=== PATIENT | female | born 1990 | race Caucasian/White ===

== ENCOUNTER 2020-02-16 19:16 | Inpatient (IN) ==
[2020-02-16] MEDS ORDERED: Naloxone 0.4 MG/ML INJ IVP ONE (19:24)
[2020-02-16] MEDS ORDERED: 0.9 % Sodium Chloride 1,000 ML ONE (19:31)
[2020-02-16] MEDS: 0.9 % Sodium Chloride 1,000 ML IVC SCH ×2 (19:42→22:10)
[2020-02-16 20:01] LABS: Basophils # 0.1 K/mcL (0.0-0.2); Basophils % 0.4 %; Eosinophils % 0.1 %; Hematocrit 43.4 % (35.3-44.9); Hemoglobin 12.6 g/dL (11.5-15.4); Immature Granulocytes % 2.4 % (0-4); Mean Platelet Volume 10.5 fL (9.4-12.4); Monocytes # 1.4 K/mcL (0.0-1.3); Monocytes % 7.2 %; Neutrophils # 11.4 K/mcL (1.6-8.9); Platelet Count 432 K/mcL (140-400); Red Blood Count 4.34 M/mcL (3.82-4.97); Red Cell Distribution Width 12.8 % (11.5-14.5); Segmented Neutrophils % 58.9 %; White Blood Count 19.3 K/mcL (4.3-11.1)
[2020-02-16 20:06] LABS: Bacteria,Urine Few per hpf (None-Few); Bilirubin,Urine Negative (Negative); Blood,Urine Small (Negative); Clarity,Urine Turbid (Clear); Color,Urine Light-Yellow (Yellow); Glucose,Urine (UA) >=1000 mg/dL (Normal); Hyaline Casts,Urine Few per lpf (None Seen); Ketones,Urine 60 mg/dL (Negative); Leukocyte Esterase,Urine Negative (Negative); Mucus,Urine Few per lpf (None-Few); Nitrite,Urine Negative (Negative); PH,Urine 5.5 pH Units (5.0-8.0); Protein,Urine 70 mg/dL (Neg-Trace); RBC,Urine 0-3 per hpf (0-3); Specific Gravity,Urine 1.018 (1.010-1.025); Squamous Epithelial Cell,Urine Few per hpf (None-Few); Urobilinogen,Urine Normal (Normal)
[2020-02-16 20:13] LABS: VBG HCO3 4 mEq/L (21-27); VBG PCO2 33 mmHg (41-51); VBG PO2 49 mmHg (25-50)
[2020-02-16 20:14] LABS: Amphetamine Screen,Urine Positive ng/mL (Cutoff=1000); Barbiturate Screen,Urine Negative ng/mL (Cutoff=200); Benzodiazepines Screen,Urine Negative ng/mL (Cutoff=200); Cannabinoid Screen,Urine Negative ng/mL (Cutoff = 50); Cocaine Screen,Urine Negative ng/mL (Cutoff= 300); Opiate Screen,Urine Negative ng/mL (Cutoff=300); Phencyclidine Screen,Urine Negative ng/mL (Cutoff=25)
[2020-02-16 20:35] LABS: Platelet Estimate Normal (Normal); Reactive Lymphocytes Present (Not Present)
[2020-02-16] MEDS ORDERED: Insulin Regular, Human 100 UNIT/ML IV ONE (20:37)
[2020-02-16 20:39] LABS: Acetaminophen < 10 mcg/mL (10-20); Alanine Aminotransferase 111 Units/L (7-52); Albumin 3.8 g/dL (3.5-5.7); Albumin/Globulin Ratio 1.1 (1.1-2.2); Alkaline Phosphatase 266 Units/L (34-104); Aspartate Amino Transferase 46 Units/L (13-39); BUN/Creatinine Ratio 25 (6-26); Bilirubin,Direct 0.1 mg/dL (0.0-0.2); Bilirubin,Indirect 0.2 mg/dL (0.0-1.0); Bilirubin,Total 0.3 mg/dL (0.3-1.0); Blood Urea Nitrogen 47 mg/dL (6-20); Carbon Dioxide < 4 mEq/L (23-29); Chloride 69 mEq/L (98-107); Estimated Average Glucose 401 mg/dl; Ethanol < 10 mg/dL (Less than 10); Globulin 3.4 g/dL (2.4-3.5); Osmolality,Calculated 306 (280-300); Potassium 7.3 mEq/L (3.5-5.1); Salicylate < 2.5 mg/dL (15.0-30.0); Sodium 109 mEq/L (136-145); Total Protein 7.2 g/dL (6.4-8.9); Troponin I 0.03 ng/mL (< 0.04); eGFR For African Americans 38 (> 60); eGFR For Non-African Americans 32 (> 60)
[2020-02-16] MEDS ORDERED: 0.9 % Sodium Chloride 1,000 ML IVC ONE (21:01)
[2020-02-16] MEDS ORDERED: Calcium Gluconate 1gm/50mL 1 GM/50 ML BAG IVPB ONE (21:08)
[2020-02-16] MEDS ORDERED: Sodium Bicarbonate 50 MEQ/50 ML VIAL IVP ONE (21:09)
[2020-02-16] MEDS ORDERED: 0.9 % Sodium Chloride 500 ML IVC ONE (21:16)
[2020-02-16 21:26] LABS: Adenovirus Not Detected (Not Detect); Coronavirus 229E Not Detected (Not Detect); Coronavirus HKU1 Not Detected (Not Detect); Coronavirus NL63 Not Detected (Not Detect); Coronavirus OC43 Not Detected (Not Detect)
[2020-02-16 21:27] LABS: Bordetella Pertussis Not Detected (Not Detect); Chlamydophila pneumoniae Not Detected (Not Detect); Human Metapneumovirus Not Detected (Not Detect); Human Rhinovirus/Enterovirus Not Detected (Not Detect); Influenza A Subtype 2009 H1 Not Detected (Not Detect); Influenza B Not Detected (Not Detect); Mycoplasma pneumoniae Not Detected (Not Detect); Parainfluenza Virus 1 Not Detected (Not Detect); Parainfluenza Virus 2 Not Detected (Not Detect); Parainfluenza Virus 3 Not Detected (Not Detect); Parainfluenza Virus 4 Not Detected (Not Detect); Respiratory Syncytial Virus Not Detected (Not Detect); SARS-CoV-2 Not Detected (Not Detect)
[2020-02-16] MEDS ORDERED: *HR* Adenosine 6 MG/2 ML VIAL IVP ONE ×2 (21:34→22:04)
[2020-02-16] MEDS: Insulin Human Regular 100 UNIT in 0.9 % Sodium Chloride 100 ML IVC SCH (21:41)
[2020-02-16] MEDS ORDERED: Insulin Regular, Human 100 UNIT/ML IV PRN (21:53)
[2020-02-16] MEDS ORDERED: D5% in 0.45% NACL w KCl 20 MEQ/1,000 ML MLS IVC PRN (21:53)
[2020-02-16] MEDS ORDERED: *HR* Dextrose 50 % in Water (Vial) 50 ML VIAL IVP PRN ×2 (21:53→22:56)
[2020-02-16] MEDS ORDERED: *HR* Adenosine 6 MG/2 ML SYRINGE IVP ONE (22:04)
[2020-02-16 22:31] LABS: ABG Base Excess -20 mEq/L (-2 to 3); ABG HCO3 6 mEq/L (21-27); ABG Oxygen Saturation 99 % (95-98); ABG PCO2 16 mmHg (35-45); ABG PH 7.18 pH Units (7.32-7.45); ABG PO2 175 mmHg (85-104); ABG TCO2 7 mEq/L (20-26)
[2020-02-16] MEDS ORDERED: Naloxone 0.4 MG/ML INJ IVP PRN (22:46)
[2020-02-16] MEDS: Sodium Bicarbonate 50 MEQ in 0.45 % Sodium Chloride 1,000 ML IVC SCH (22:50)
[2020-02-16 23:06] LABS: Glucose 1284 mg/dL (70-105)
[2020-02-17 00:21] LABS: BUN/Creatinine Ratio 29 (6-26); Blood Urea Nitrogen 37 mg/dL (6-20); Calcium 9.1 mg/dL (8.6-10.3); Carbon Dioxide 8 mEq/L (23-29); Chloride 93 mEq/L (98-107); Glucose 636 mg/dL (70-105); Osmolality,Calculated 307 (280-300); Potassium 5.2 mEq/L (3.5-5.1); Sodium 129 mEq/L (136-145); eGFR For African Americans > 60 (> 60); eGFR For Non-African Americans 50 (> 60)
[2020-02-17] MEDS: 0.45 % Sodium Chloride w/KCl 20 MEQ/1,000 ML MLS IVC SCH ×5 (00:47→20:37)
[2020-02-17] MEDS ORDERED: Ondansetron 4 MG/2 ML VIAL ONE (00:50)
[2020-02-17] MEDS: Ondansetron 4 MG/2 ML VIAL IVP PRN ×3 (00:54→16:06)
[2020-02-17 01:11] LABS: Creatinine,Urine 16 mg/dL
[2020-02-17 03:09] LABS: Hepatitis B Surface Antigen Nonreactive (Nonreactive)
[2020-02-17 03:37] LABS: Hepatitis B Core IgM Nonreactive (Nonreactive)
[2020-02-17 03:38] LABS: Hepatitis A Antibody IgM Nonreactive (Nonreactive)
[2020-02-17 04:34] LABS: VBG HCO3 17 mEq/L (21-27); VBG PCO2 33 mmHg (41-51); VBG PH 7.32 pH Units (7.32-7.42); VBG PO2 140 mmHg (25-50)
[2020-02-17 04:50] LABS: Alanine Aminotransferase 97 Units/L (7-52); Albumin 3.8 g/dL (3.5-5.7); Albumin/Globulin Ratio 1.2 (1.1-2.2); Alkaline Phosphatase 233 Units/L (34-104); Aspartate Amino Transferase 40 Units/L (13-39); BUN/Creatinine Ratio 25 (6-26); Bilirubin,Total 0.4 mg/dL (0.3-1.0); Blood Urea Nitrogen 28 mg/dL (6-20); Calcium 9.1 mg/dL (8.6-10.3); Carbon Dioxide 15 mEq/L (23-29); Chloride 97 mEq/L (98-107); Globulin 3.1 g/dL (2.4-3.5); Glucose 376 mg/dL (70-105); Magnesium 1.7 mg/dL (1.6-2.6); Osmolality,Calculated 293 (280-300); Phosphorous 1.5 mg/dL (2.7-4.5); Potassium 5.5 mEq/L (3.5-5.1); Sodium 131 mEq/L (136-145); Total Protein 6.9 g/dL (6.4-8.9); eGFR For African Americans > 60 (> 60); eGFR For Non-African Americans 60 (> 60)
[2020-02-17 05:49] LABS: Hepatitis C Virus Antibody Reactive (Nonreactive)
[2020-02-17] MEDS: *HR* Heparin 5,000 UNIT/ML VIAL SQ SCH ×3 (06:11→21:23)
[2020-02-17] MEDS: Sodium Bicarbonate 50 MEQ in 0.45 % Sodium Chloride 1,000 ML IVC SCH (08:51)
[2020-02-17 09:18] LABS: Hematocrit 33.7 % (35.3-44.9); Hemoglobin 11.7 g/dL (11.5-15.4); Mean Corpuscular HGB Conc 34.7 g/dL (31.6-35.5); Mean Corpuscular Hemoglobin 28.9 pg (28.0-33.3); Mean Corpuscular Volume 83.2 fL (83.0-100.0); Mean Platelet Volume 9.2 fL (9.4-12.4); Platelet Count 280 K/mcL (140-400); Red Blood Count 4.05 M/mcL (3.82-4.97); Red Cell Distribution Width 12.7 % (11.5-14.5); White Blood Count 11.2 K/mcL (4.3-11.1)
[2020-02-17 09:19] LABS: VBG Ionized Calcium 1.09 mmol/L (1.15-1.35)
[2020-02-17 09:46] LABS: Alanine Aminotransferase 84 Units/L (7-52); Albumin 3.5 g/dL (3.5-5.7); Albumin/Globulin Ratio 1.3 (1.1-2.2); Alkaline Phosphatase 204 Units/L (34-104); Aspartate Amino Transferase 37 Units/L (13-39); BUN/Creatinine Ratio 24 (6-26); Bilirubin,Total 0.4 mg/dL (0.3-1.0); Blood Urea Nitrogen 20 mg/dL (6-20); Calcium 8.4 mg/dL (8.6-10.3); Carbon Dioxide 19 mEq/L (23-29); Chloride 97 mEq/L (98-107); Globulin 2.8 g/dL (2.4-3.5); Glucose 313 mg/dL (70-105); Magnesium 2.2 mg/dL (1.6-2.6); Osmolality,Calculated 285 (280-300); Phosphorous 1.8 mg/dL (2.7-4.5); Potassium 5.3 mEq/L (3.5-5.1); Sodium 130 mEq/L (136-145); Total Protein 6.3 g/dL (6.4-8.9); eGFR For African Americans > 60 (> 60); eGFR For Non-African Americans > 60 (> 60)
[2020-02-17] MEDS: D5% in 0.45% NACL 1,000 ML IVC PRN ×2 (11:15→15:18)
[2020-02-17] MEDS ORDERED: Perflutren Lipid Microsphere 1.3 ML in 0.9 % Sodium Chloride 8.7 ML IVP PRN (11:46)
[2020-02-17] MEDS ORDERED: cefTRIAXone 2,000 MG in Water for inj. (sterile) 20 ML IVP SCH (12:00)
[2020-02-17] MEDS: Insulin Human Regular 100 UNIT in 0.9 % Sodium Chloride 100 ML IVC SCH (15:00)
[2020-02-17 17:20] LABS: BUN/Creatinine Ratio 19 (6-26); Blood Urea Nitrogen 12 mg/dL (6-20); Calcium 8.5 mg/dL (8.6-10.3); Carbon Dioxide 29 mEq/L (23-29); Chloride 101 mEq/L (98-107); Glucose 94 mg/dL (70-105); Magnesium 1.7 mg/dL (1.6-2.6); Osmolality,Calculated 278 (280-300); Phosphorous 2.2 mg/dL (2.7-4.5); Potassium 3.7 mEq/L (3.5-5.1); Sodium 134 mEq/L (136-145); eGFR For African Americans > 60 (> 60); eGFR For Non-African Americans > 60 (> 60)
[2020-02-17] MEDS ORDERED: *HR* Dextrose 50 % in Water (Vial) 50 ML VIAL IVP PRN (17:40)
[2020-02-17] MEDS ORDERED: D5% in Water 1,000 ML IVC PRN (17:40)
[2020-02-17] MEDS ORDERED: Insulin DETEMIR 100 UNIT/ML X5UNITS SQ ONE (17:41)
[2020-02-17] MEDS ORDERED: D5% in 0.45% NACL 1,000 ML IVC PRN (17:44)
[2020-02-17] MEDS: Insulin LISPRO 300 UNITS/3 ML VIAL SQ SCH ×2 (20:32→23:36)
[2020-02-17] MEDS: 0.9 % Sodium Chloride 1,000 ML IVC SCH ×4 (20:33→20:35)
[2020-02-18] MEDS ORDERED: Acetaminophen 325 MG TABLET PO ONE (03:10)
[2020-02-18] MEDS: Insulin LISPRO 300 UNITS/3 ML VIAL SQ SCH ×5 (03:45→21:26)
[2020-02-18 03:54] LABS: Basophils % 0.1 %; Eosinophils % 0.3 %; Hematocrit 32.2 % (35.3-44.9); Hemoglobin 11.3 g/dL (11.5-15.4); Immature Granulocytes % 0.3 % (0-4); Lymphocytes # 3.3 K/mcL (0.6-4.6); Lymphocytes % 46.5 %; Mean Corpuscular HGB Conc 35.1 g/dL (31.6-35.5); Mean Corpuscular Hemoglobin 28.8 pg (28.0-33.3); Mean Corpuscular Volume 82.1 fL (83.0-100.0); Mean Platelet Volume 8.7 fL (9.4-12.4); Monocytes # 0.5 K/mcL (0.0-1.3); Monocytes % 7.3 %; Neutrophils # 3.2 K/mcL (1.6-8.9); Platelet Count 210 K/mcL (140-400); Red Blood Count 3.92 M/mcL (3.82-4.97); Red Cell Distribution Width 13.2 % (11.5-14.5); Segmented Neutrophils % 45.5 %; White Blood Count 7.1 K/mcL (4.3-11.1)
[2020-02-18 04:15] LABS: Alanine Aminotransferase 75 Units/L (7-52); Albumin 3.1 g/dL (3.5-5.7); Albumin/Globulin Ratio 1.1 (1.1-2.2); Alkaline Phosphatase 172 Units/L (34-104); Aspartate Amino Transferase 70 Units/L (13-39); BUN/Creatinine Ratio 12 (6-26); Bilirubin,Total 0.2 mg/dL (0.3-1.0); Blood Urea Nitrogen 7 mg/dL (6-20); Calcium 8.9 mg/dL (8.6-10.3); Carbon Dioxide 28 mEq/L (23-29); Chloride 98 mEq/L (98-107); Globulin 2.7 g/dL (2.4-3.5); Glucose 198 mg/dL (70-105); Osmolality,Calculated 278 (280-300); Potassium 3.8 mEq/L (3.5-5.1); Sodium 132 mEq/L (136-145); Total Protein 5.8 g/dL (6.4-8.9); eGFR For African Americans > 60 (> 60); eGFR For Non-African Americans > 60 (> 60)
[2020-02-18] MEDS: *HR* Heparin 5,000 UNIT/ML VIAL SQ SCH ×3 (06:45→21:26)
[2020-02-18] MEDS ORDERED: Perflutren Lipid Microsphere 1.3 ML in 0.9 % Sodium Chloride 8.7 ML IVP PRN (09:43)
[2020-02-18] MEDS ORDERED: *HR* Dextrose 50 % in Water (Vial) 50 ML VIAL IVP PRN (09:43)
[2020-02-18] MEDS ORDERED: Insulin Regular, Human 100 UNIT/ML IV PRN (09:43)
[2020-02-18] MEDS ORDERED: Naloxone 0.4 MG/ML INJ IVP PRN (09:43)
[2020-02-18] MEDS ORDERED: D5% in 0.45% NACL 1,000 ML IVC PRN (09:43)
[2020-02-18] MEDS ORDERED: D5% in Water 1,000 ML IVC PRN (09:43)
[2020-02-18] MEDS: Acetaminophen 325 MG TABLET PO PRN (11:38)
[2020-02-18] MEDS: Ondansetron 4 MG/2 ML VIAL IVP PRN (11:50)
[2020-02-18] MEDS ORDERED: cefTRIAXone 2,000 MG in Water for inj. (sterile) 20 ML IVP SCH (12:00)
[2020-02-18] MEDS: Insulin DETEMIR 100 UNIT/ML X5UNITS SQ SCH ×2 (14:24→21:25)
[2020-02-18] MEDS ORDERED: *HR* Promethazine 25 MG/ML VIAL IVP PRN (16:20)
[2020-02-18] MEDS: *HR* OxyCODONE Immed Rel 5 MG TABLET PO PRN (17:21)
[2020-02-19] MEDS: Insulin LISPRO 300 UNITS/3 ML VIAL SQ SCH ×5 (01:57→16:31)
[2020-02-19] MEDS: *HR* OxyCODONE Immed Rel 5 MG TABLET PO PRN (04:48)
[2020-02-19] MEDS: *HR* Heparin 5,000 UNIT/ML VIAL SQ SCH ×3 (04:48→21:18)
[2020-02-19] MEDS: Insulin DETEMIR 100 UNIT/ML X5UNITS SQ SCH ×2 (10:08→21:18)
[2020-02-19] MEDS ORDERED: Fluconazole 40 MG/ML UDC PO ONE (10:35)
[2020-02-19] MEDS: Acetaminophen 325 MG TABLET PO PRN ×2 (11:30→21:26)
[2020-02-19 12:49] LABS: Bilirubin,Urine Negative (Negative); Blood,Urine Negative (Negative); Clarity,Urine Clear (Clear); Color,Urine Light-Yellow (Yellow); Glucose,Urine (UA) >=1000 mg/dL (Normal); Ketones,Urine Negative (Negative); Leukocyte Esterase,Urine Negative (Negative); Mucus,Urine Few per lpf (None-Few); Nitrite,Urine Negative (Negative); Protein,Urine Negative (Neg-Trace); RBC,Urine 0-3 per hpf (0-3); Specific Gravity,Urine 1.025 (1.010-1.025); Squamous Epithelial Cell,Urine Few per hpf (None-Few); Urobilinogen,Urine Normal (Normal); WBC,Urine 0-3 per hpf (0-3)
[2020-02-19 14:50] LABS: Hematocrit 31.2 % (35.3-44.9); Hemoglobin 10.5 g/dL (11.5-15.4); Mean Corpuscular HGB Conc 33.7 g/dL (31.6-35.5); Mean Corpuscular Volume 86.2 fL (83.0-100.0); Platelet Count 163 K/mcL (140-400); Red Blood Count 3.62 M/mcL (3.82-4.97); Red Cell Distribution Width 13.2 % (11.5-14.5); White Blood Count 5.2 K/mcL (4.3-11.1)
[2020-02-19 14:55] LABS: VBG HCO3 25 mEq/L (21-27); VBG PCO2 36 mmHg (41-51); VBG PH 7.45 pH Units (7.32-7.42); VBG PO2 159 mmHg (25-50)
[2020-02-19] MEDS ORDERED: 0.9 % Sodium Chloride 1,000 ML IVC ONE (15:11)
[2020-02-19 15:12] LABS: Alanine Aminotransferase 65 Units/L (7-52); Albumin 3.2 g/dL (3.5-5.7); Albumin/Globulin Ratio 1.3 (1.1-2.2); Alkaline Phosphatase 144 Units/L (34-104); Aspartate Amino Transferase 62 Units/L (13-39); BUN/Creatinine Ratio 12 (6-26); Bilirubin,Indirect 0.2 mg/dL (0.0-1.0); Bilirubin,Total 0.2 mg/dL (0.3-1.0); Blood Urea Nitrogen 8 mg/dL (6-20); Calcium 8.8 mg/dL (8.6-10.3); Carbon Dioxide 25 mEq/L (23-29); Chloride 98 mEq/L (98-107); Globulin 2.5 g/dL (2.4-3.5); Glucose 216 mg/dL (70-105); Lipase 25 Units/L (11-82); Magnesium 1.5 mg/dL (1.6-2.6); Osmolality,Calculated 279 (280-300); Potassium 3.8 mEq/L (3.5-5.1); Sodium 132 mEq/L (136-145); Total Protein 5.7 g/dL (6.4-8.9); eGFR For African Americans > 60 (> 60); eGFR For Non-African Americans > 60 (> 60)
[2020-02-19] MEDS ORDERED: Dextrose Gel 15 GM/37.5 ML TUBE PO PRN ×2 (15:12)
[2020-02-19] MEDS: Sennosides/Docusate Sodium TABLET PO SCH ×2 (16:01→21:17)
[2020-02-19] MEDS: polyethylene glycoL 3350 17 GM POWD.PACK PO SCH (16:01)
[2020-02-19] MEDS ORDERED: Ketorolac 15 MG/ML VIAL IVP ONE (22:43)
[2020-02-20 04:21] LABS: Hematocrit 29.6 % (35.3-44.9); Hemoglobin 9.7 g/dL (11.5-15.4); Mean Corpuscular HGB Conc 32.8 g/dL (31.6-35.5); Mean Corpuscular Hemoglobin 28.6 pg (28.0-33.3); Mean Corpuscular Volume 87.3 fL (83.0-100.0); Mean Platelet Volume 9.2 fL (9.4-12.4); Platelet Count 161 K/mcL (140-400); Red Blood Count 3.39 M/mcL (3.82-4.97); Red Cell Distribution Width 13.1 % (11.5-14.5); White Blood Count 3.3 K/mcL (4.3-11.1)
[2020-02-20 04:39] LABS: BUN/Creatinine Ratio 12 (6-26); Blood Urea Nitrogen 8 mg/dL (6-20); Calcium 8.5 mg/dL (8.6-10.3); Carbon Dioxide 24 mEq/L (23-29); Chloride 100 mEq/L (98-107); Glucose 256 mg/dL (70-105); Magnesium 1.8 mg/dL (1.6-2.6); Osmolality,Calculated 281 (280-300); Phosphorous 3.4 mg/dL (2.7-4.5); Potassium 4.1 mEq/L (3.5-5.1); Sodium 132 mEq/L (136-145); eGFR For African Americans > 60 (> 60); eGFR For Non-African Americans > 60 (> 60)
[2020-02-20] MEDS ORDERED: 0.9 % Sodium Chloride 1,000 ML IVC SCH (04:45)
[2020-02-20] MEDS: *HR* Heparin 5,000 UNIT/ML VIAL SQ SCH (06:01)
[2020-02-20] MEDS: Acetaminophen 325 MG TABLET PO PRN (06:18)
[2020-02-20] MEDS: Insulin DETEMIR 100 UNIT/ML X5UNITS SQ SCH (08:24)
[2020-02-20] MEDS: polyethylene glycoL 3350 17 GM POWD.PACK PO SCH (08:24)
[2020-02-20] MEDS: Sennosides/Docusate Sodium TABLET PO SCH (08:24)
[2020-02-20] MEDS: Insulin LISPRO 300 UNITS/3 ML VIAL SQ SCH ×2 (08:25→12:35)
[2020-02-20] MEDS: Ondansetron 4 MG/2 ML VIAL IVP PRN (08:29)
[2020-02-20 09:30] LABS: VBG HCO3 29 mEq/L (21-27); VBG PCO2 51 mmHg (41-51); VBG PH 7.36 pH Units (7.32-7.42); VBG PO2 57 mmHg (25-50)
[2020-02-20 10:53] VITALS: BP 106/69
== END 2020-02-20 16:12 | disposition home or self-care (01) | DRG 720 ==
LOC: EMEROOARM 19:16 → ICNU 21:15 → SUATTDRO 21:39 → CDU 21:39 → ICNU 21:45 → 3ANU 02-18 14:55
PROVIDERS: ADMIT Internal Medicine; ATTEND Internal Medicine